=== PATIENT | female | born 1955 | race American Indian/Alaskan Native ===

== ENCOUNTER 2019-04-08 10:38 | Emergency (ER) | payer BC ==
[2019-04-08 11:06] VITALS: BP 165/73
[2019-04-08] MEDS ORDERED: IBUPROFEN PO ONE (14:03)
--- NOTE | 2019-04-08 14:07 | Emergency Department Report ---
ED General Adult HPI - General Chief complaint: Skin/Abscess/Foreign Body Stated complaint: POSS CYST ON (L) SIDE Source: patient Mode of arrival: Ambulatory Limitations: No Limitations - History of Present Illness Initial comments: Patient reports left shoulder lipoma for over 6 months. Reports that she had it checked in [place] and was told it was a fat collection of tissue under her skin. Patient reports that today it was hurting a little bit more and wanted to know if it could be removed in the ER. -: month(s) (over 6 months) Location: back (left shoulder blade) Radiation: non-radiation Severity scale (0 -10): 1 Quality: aching Consistency: intermittent Improves with: none Worsens with: none Associated Symptoms: denies: confusion, chest pain, cough, diaphoresis, fever/chills, headaches, loss of appetite, malaise, nausea/vomiting, rash, seizure, shortness of breath, syncope, weakness Treatments Prior to Arrival: other (Tylenol) - Related Data Previous Rx's Medication Instructions Recorded Last Taken Type Ibuprofen [Motrin 400 MG tab] 400 mg PO Q6H PRN #20 tablet 04/08/19 Unknown Rx Allergies Allergy/AdvReac Type Severity Reaction Status Date / Time No Known Allergies Allergy Unverified 04/08/19 10:41 ED Review of Systems ROS: Stated complaint: POSS CYST ON (L) SIDE Other details as noted in HPI Other: GENERAL: No weight change, fatigue, weakness, fever, chills, or night sweats SKIN: Soft tissue collection under skin on left shoulder HEAD: No trauma, headache, or visual changes EYES: No blurriness, tearing, itching, acute visual loss, conjunctival discoloration, or scleral icterus EARS: No hearing loss, tinnitus, vertigo, or earache NOSE: No rhinorrhea, stuffiness, sneezing, itching, or epistaxis MOUTH: No bleeding gums, hoarseness, sore throat, or swelling CARDIAC: No new murmur, chest pain, palpitations, dyspnea on exertion, orthopnea, PND, or edema RESPIRATORY: No shortness of breath, wheeze, cough, sputum production, h emoptysis, pneumonia, asthma, bronchitis, or emphysema GI: No change in appetite, nausea, vomiting, dysphagia, change in bowel frequency, diarrhea, constipation, bleeding, hematemesis, melena, hematochezia, or abdominal pain URINARY: No frequency, urgency, polyuria, dysuria, hematuria, or incontinence MUSCULOSKELETAL: No muscle weakness, joint stiffness, decrease in range of motion, redness, swelling NEUROLOGIC: No loss of sensation, numbness, tingling, tremors, weakness, paralysis, seizures HEMATOLOGIC: No anemia, easy bruising, bleeding, petechiae, or purpura ENDOCRINE: No hot or cold intolerance, sweating, polyuria, polydipsia or, polyphagia no thyroid problems PSYCHIATRIC: No change in mood, no anxiety, no depression ED Past Medical Hx - Past Medical History Previous Medical History?: No - Surgical History Past Surgical History?: No - Social History Smoking Status: Current Every Day Smoker Substance Use Type: None - Medications Home Medications: Home Medications Medication Instructions Recorded Confirmed Last Taken Type Ibuprofen [Motrin 400 MG tab] 400 mg PO Q6H PRN #20 tablet 04/08/19 Unknown Rx ED Physical Exam - General Limitations: No Limitations - Other Other exam information: GENERAL: Patient in no acute distress HEAD: Normocephalic, atraumatic EYES: PERRLA, EOM intact, no scleral icterus, no papilledema, no conjunctival hemorrhage, visual young and acuity wnl NOSE: No tenderness, discharge, sinus tenderness MOUTH: No erythema, bleeding, exudate HEART: Regular rate and rhythm, no murmur, S1-S2 are auscultated, pulses are symmetric LUNGS: No wheezing, rales, rhonchi, bilateral breath sounds ABDOMEN: Normal bowel sounds, no tenderness, no rebound, no guarding, no masses, no CVA tenderness MUSCULOSKELETAL: Normal joint range of motion, no redness, no swelling, no tenderness NEUROLOGIC: GCS 15, Alert and Oriented x3, Cranial nerves intact, normal sensation, normal strength, no cerebellar deficit PSYCHIATRIC: No homicidal or suicidal ideation, no anxiety, no depression, no hallucinations SKIN: Skin is warm and dry, Left Back soft tissue swelling without erythema, no discharge, no warmth, no tenderness measuring approximately 5 cm in diameter ED Course Vital Signs 04/08/19 04/08/19 11:04 14:16 Temperature 98.7 F Pulse Rate 74 Respiratory 18 17 Rate Blood Pressure 165/73 O2 Sat by Pulse 100 Oximetry ED Medical Decision Making - Medical Decision Making Patient comfortable. Plan discharge with outpatient follow up. Return if any worsening. Critical care attestation.: If time is entered above; I have spent that time in minutes in the direct care of this critically ill patient, excluding procedure time. ED Disposition Clinical Impression: Lipoadenoma Disposition: TO HOME OR SELFCARE Is pt being admited?: No Condition: Stable Instructions: Lipoma (ED) Prescriptions: Ibuprofen [Motrin 400 MG tab] 400 mg PO Q6H PRN #20 tablet PRN Reason: Pain, Mild (1-3) Referrals: MIKY ROCKWELL MD [Primary Care Provider] - 2-3 Days [facility] [Outside] - as needed THOMAS SPEARS MD [Staff Physician] - 2-3 Days Time of Disposition: 14:05
== END 2019-04-08 14:19 | disposition home or self-care (01) ==
LOC: ED 10:38
DX: D17.22 Benign lipomatous neoplasm of skin and subcutaneous tissue of left arm (principal); F17.200 Nicotine dependence, unspecified, uncomplicated; Z79.899 Other long term (current) drug therapy
CPT/HCPCS: 99282

== ENCOUNTER 2019-05-05 09:56 | Day surgery (SDC) | payer BC ==
[~2019-05-05 09:56] MED LIST: ANCEF/STERILE WATER 2 GM/20 ML 2 GM/20 ML SYRINGE IV NR; LACTATED RINGERS 1,000 ML IV SCH; NEURONTIN PO SCH; TYLENOL PO ONE
[2019-05-05] MEDS ORDERED: DILAUDID IV PRN (10:22)
--- NOTE | 2019-05-05 10:22 | Anesthesia Consultation ---
Anesthesia Consult and Med Hx Date of service: 05/05/19 - Airway Anesthetic Teeth Evaluation: Dentures (upper and lower) ROM Head & Neck: Adequate Mental/Hyoid Distance: Adequate Mallampati Class: Class II Intubation Access Assessment: Probably Good - Pulmonary Exam CTA: Yes - Cardiac Exam Cardiac Exam: RRR - Pre-Operative Health Status ASA Pre-Surgery Classification: ASA2 Proposed Anesthetic Plan: General, MAC - Pre-Anesthesia Comment Pre-Anesthesia Comments: GA vs MAC pending discussion with surgeon regarding extent of intended procedure. - Pulmonary Hx Smoking: Yes (1 PACK PER WEEK X 21 YRS) Hx Respiratory Symptoms: No Hx Sleep Apnea: No (SHERMAN PRE SCREEN LOW RISK.) - Cardiovascular System Hx Hypertension: No Hx Heart Attack/AMI: No - Central Nervous System CVA: No - Gastrointestinal Hx Gastroesophageal Reflux Disease: No - Endocrine Hx Renal Disease: No Hx Liver Disease: No Hx Insulin Dependent Diabetes: No Hx Non-Insulin Dependent Diabetes: No Hx Thyroid Disease: No - Other Systems Hx Obesity: Yes - Additional Comments Anesthesia Medical History Comments: No hx anesthetic complications.
--- NOTE | 2019-05-05 10:23 | Anesthesia Day of Surgery ---
Anesthesia Day of Surgery - Day of Surgery Patient Examined: Yes Patient H&P Reviewed: Yes Patient is NPO: Yes
[2019-05-05] MEDS ORDERED: XYLOCAINE 1% 20 mL ONE (10:57)
[2019-05-05] MEDS ORDERED: MARCAINE-EPI 0.5%-1:200,000 INFILTRATI ONE ×2 (10:57→12:39)
[2019-05-05] MEDS ORDERED: VERSED IV NR (11:00)
[2019-05-05] MEDS ORDERED: TYLENOL PO NR (11:00)
[2019-05-05] MEDS ORDERED: VERSED ONE (11:15)
[2019-05-05] MEDS ORDERED: SUBLIMAZE ONE (11:15)
[2019-05-05] MEDS ORDERED: DIPRIVAN 10 MG/ML IV ONE (11:16)
--- NOTE | 2019-05-05 11:50 | Short Stay Summary ---
Short Stay Documentation Date of service: 05/05/19 - History H&P: obtained from office - Allergies and Medications Current Medications: Allergies No Known Allergies Allergy (Verified 04/30/19 17:08) Home Medications Medication Instructions Recorded Confirmed Last Taken Type Ibuprofen [Motrin 400 MG tab] 400 mg PO Q6H PRN #20 tablet 04/08/19 05/05/19 05/04/19 Rx Active Medications Celecoxib (Celebrex) 200 mg PO PREOP NR Stop: 05/05/19 23:59 Last Admin: 05/05/19 10:40 Dose: 200 mg Documented by: Gabapentin (Neurontin) 600 mg PO PREOP CORY Last Admin: 05/05/19 10:40 Dose: 600 mg Documented by: Hydromorphone HCl (Dilaudid) 0.5 mg IV Q10MIN PRN PRN Reason: Pain , Severe (7-10) Stop: 05/05/19 22:00 Lactated Ringer's (Lactated Ringers) 1,000 mls @ 100 mls/hr IV DIRECT CORY Last Admin: 05/05/19 10:52 Dose: 100 mls/hr Documented by: Cefazolin Sodium (Ancef/Sterile Water 2 Gm/20 Ml) 2 gm in 20 mls @ 80 mls/hr IV PREOP NR; Protocol Stop: 05/05/19 23:59 Midazolam HCl (Versed) 2 mg IV PREOP NR Stop: 05/05/19 23:59 Last Admin: 05/05/19 11:00 Dose: 2 mg Documented by: - Physical exam General appearance: no acute distress Integumentary: no rash, other (large mass noted on back) HEENT: Atraumatic Lungs: Normal air movement Neurological: Normal speech - Brief post op/procedure progress note Date of procedure: 05/05/19 (dictation:[id number]) Pre-op diagnosis: back mass Post-op diagnosis: same Procedure: Excision of back soft tissue mass IVF 1100 EBL min Anesthesia: GETA Findings: lipomatous mass - [id number] Surgeon: THOMAS SPEARS Estimated blood loss: minimal Pathology: list (lipomatous mass) Specimen disposition: to lab Condition: stable - Hospital course Hospital course: uneventful - Disposition Disposition: - TO HOME OR SELFCARE Short Stay Discharge Plan Wound: keep clean and dry, remove dressing (in 48 hours. May shower at that time. Pat dry wound. ) Special Instructions: no heavy lifting Additional Instructions: Post Operative Instructions No driving until cleared by surgeon. May shower tomorrow. Pat dry the wound or wounds. After surgery, start with a light diet. Consider having a liquid diet first. If you do well, you can advance to a regular diet as you feel comfortable. Apply an ice pack to the wound or wounds for 10-20 minutes at a time. Do this at least 4-5 times a day. You can do it more if he would like. Alternate the use of ibuprofen and Tylenol for the first 2 days. I want you to take these on a scheduled basis. Take 600 mg of ibuprofen every 6 hours. Take 500 mg of Tylenol every 6 hours. You should alternate these 2 medicines. In other words, beginning with the ibuprofen. After 3 hours, take the Tylenol. Keep alternating the 2 drugs every 3 hours. Do this on a scheduled basis for the first 2 days. After that, you can take them as needed. It is very important that you use the prescription pain medicine only for very severe pain. Do not take the prescription medicine before you try using the ibuprofen and Tylenol. We will call you in a couple of days to see how youre doing. If you have any questions or concerns, always feel free to call the clinic at any time. Follow up with: PRIMARY CAREMD [Primary Care Provider] - 7 Days THOMAS SPEARS MD [Staff Physician] - 7 Days Forms: Work/School Excuse Out Patient, [facility] Work/School Release Form Prescriptions: HYDROcodone/APAP 5-325 [[place] 5/325] 1 each PO Q6HR PRN #15 tablet PRN Reason: Pain , Severe (7-10)
[2019-05-05] MEDS ORDERED: XYLOCAINE 1% 20 mL INFILTRATI ONE (12:40)
[2019-05-05] MEDS ORDERED: NACL 0.9% IR ONE (12:42)
[2019-05-05] MEDS ORDERED: BLOXIVERZ ONE (12:56)
[2019-05-05] MEDS ORDERED: ZEMURON IV ONE (12:56)
[2019-05-05] MEDS ORDERED: TORADOL ONE (12:56)
[2019-05-05] MEDS ORDERED: ZOFRAN ONE (12:56)
[2019-05-05] MEDS ORDERED: ROBINUL ONE (12:56)
[2019-05-05] MEDS ORDERED: XYLOCAINE MPF 2% ONE (12:56)
[2019-05-05] MEDS ORDERED: APRESOLINE IV ONE (14:15)
--- NOTE | 2019-05-05 14:45 | Post Anesthesia Evaluation ---
- Post Anesthesia Evaluation Patient Participated: Yes Airway Patent: Yes Stable Respiratory Function: Yes Nausea/Vomiting: No Temp > 96.8F: Yes Pain Manageable: Yes Adequeate Hydration: Yes Anesthesia Complications: No
[2019-05-05 16:04] VITALS: BP 153/66
--- NOTE | 2019-05-06 13:10 | Operative Report ---
PREOPERATIVE DIAGNOSIS: Left upper back soft tissue mass. POSTOPERATIVE DIAGNOSIS: Left upper back soft tissue mass. PROCEDURE: Excision of back soft tissue mass. ATTENDING PHYSICIAN: Ted Carrillo MD ANESTHESIA: General. ESTIMATED BLOOD LOSS: Minimal. FLUIDS: 1100 of crystalloid. FINDINGS: 9.5 x 10 x 5 cm lipomatous mass. No invasion into surrounding tissue, located in the subcutaneous level. No involvement of fascia. SPECIMENS: Same. DRAINS: None. DISPOSITION: Stable, transferred to Recovery. INDICATIONS: This is a 63-year-old female who reports that she has had a progressively enlarging back mass that causes her pain at work, especially when she is lifting things above her shoulder level. The patient requests excision. The patient was assessed to have a very large mass on the back that was appropriate for excision. Procedure, risks, benefits were explained to the patient. Risks included but were not limited to infection, bleeding, pain, injury to surrounding structures, possible need for further procedures in the future. The patient understood and consented. OPERATIVE NOTE: The patient was brought to the operating room and anesthetized on the transport bed. Once general anesthesia was established, patient was placed in a prone position on the operating table. Pressure points were all padded. Sterile prep and drape was performed. SCDs were in place. Antibiotics had been given. Following the lines of tension, a planned incision was marked out. Local anesthetic was administered over the incision site and around in the surrounding tissue. Incision was made with a scalpel. Dissection was carried down to the mass with electrocautery. With a combination of electrocautery and blunt dissection, I dissected out the mass from the surrounding tissue. I was able to get it out in its entirety. There was no evidence of any residual mass left in the pocket. The pocket was hemostatic. Fascia was completely intact underneath. There was no evidence of any invasion into that area. The mass itself appeared to be atypical lipomatous mass. It was oriented with a short suture for the superior end, long for lateral and double end for deep. Mass was passed off the table in sterile fashion. We thoroughly irrigated out the pocket. I injected additional local and then I used 3-0 Vicryl to close the deep layer with some of the bites incorporating the underlying fascia to minimize the potential for seroma formation. Skin was closed with 4-0 Monocryl subcuticular stitch. Skin was cleaned and dried. Dermabond and pressure dressing were placed. The patient tolerated the procedure well. There were no complications. All counts were correct at the end of the case. I spoke with the family at the end of the case. Of note, patient did have an abnormal area surrounding the epiglottis. I will show her the image that anesthesia took and recommend ENT followup. JOB# [id number] GABINO/SIDNEY
== END 2019-05-05 15:10 | disposition home or self-care (01) ==
LOC: OR 09:56
PROVIDERS: ATTEND Surgery
DX: D17.1 Benign lipomatous neoplasm of skin and subcutaneous tissue of trunk (principal); E66.9 Obesity, unspecified; F17.210 Nicotine dependence, cigarettes, uncomplicated; Z79.899 Other long term (current) drug therapy; Z90.49 Acquired absence of other specified parts of digestive tract; Z68.33 Body mass index [BMI] 33.0-33.9, adult; Z90.710 Acquired absence of both cervix and uterus; Z98.890 Other specified postprocedural states; Z86.2 Personal history of diseases of the blood and blood-forming organs and certain disorders involving the immune mechanism
CPT/HCPCS: 21931; 88304; J0360; J0690; J1885; J2250; J2405; J2704; J2710; J3010; J7120; 88307